=== PATIENT | male | born 2000 | race Caucasian/White ===

== ENCOUNTER 2023-01-19 19:46 | Emergency (ER) | payer OTHER ==
[~2023-01-19] VITALS: Ht 175.3 cm; Wt 80.0 kg
[~2023-01-19 19:46] MED LIST: PERCOCET 5/325M1 TAB PO
[2023-01-19] MEDS ORDERED: NAPROXEN500 MG PO (21:31)
[2023-01-19 22:07] VITALS: BP 128/70
== END 2023-01-19 22:00 | disposition home or self-care (01) | DRG 563 ==
LOC: ED 19:46
DX: S63.502A Unspecified sprain of left wrist, initial encounter (principal); W23.0XXA Caught, crushed, jammed, or pinched between moving objects, initial encounter; Y92.89 Other specified places as the place of occurrence of the external cause; Y99.0 Civilian activity done for income or pay